=== PATIENT | female | born 1950 | race Two or more races ===

== ENCOUNTER 2024-08-14 11:05 | Inpatient (IN) | payer MEDICARE, OTHER ==
[~2024-08-14] VITALS: Ht 167.6 cm; Wt 77.6 kg
[2024-08-14] MEDS: IV NS 0.9% 1,000 ML BAG IV ONE (11:35)
[2024-08-14 12:16] LABS: BASOPHILS # (AUTO) 0.1 K/uL (0.0-0.2); BASOPHILS % (AUTO) 0.8 % (0.0-2.0); EOSINOPHILS # (AUTO) 0.3 K/uL (0.0-0.7); EOSINOPHILS % (AUTO) 2.9 % (0.0-6.0); HEMATOCRIT 30 % (33-45); HEMOGLOBIN 9.5 g/dL (11.5-14.8); LYMPHOCYTES # (AUTO) 0.8 K/uL (0.8-4.8); LYMPHOCYTES % (AUTO) 7.7 % (20.0-44.0); MEAN CORPUSCULAR HEMOGLOBIN 23 PG (26.0-33.0); MEAN CORPUSCULAR HGB CONC 32 g/dl (31.0-36.0); MEAN CORPUSCULAR VOLUME 73 fL (82-100); MONOCYTES % (AUTO) 9.3 % (2.0-12.0); NEUTROPHILS # (AUTO) 8.3 K/uL (1.8-8.9); NEUTROPHILS % (AUTO) 79.3 % (43.0-81.0); PLATELET COUNT (AUTO) 530 K/uL (150-450); RED BLOOD CELL COUNT(AUTO) 4.13 MIL/uL (4.0-5.2); RED CELL DISTRIBUTION WIDTH 18.7 % (11.5-15.0); WHITE BLOOD COUNT (AUTO) 10.4 K/uL (4.3-11.0)
[2024-08-14 12:39] LABS: ALANINE AMINOTRANSFERASE 19 U/L (12-78); ALBUMIN 2.5 g/dL (3.4-5.0); ALKALINE PHOSPHATASE 149 U/L (46-116); ASPARTATE AMINOTRANSFERASE 20 U/L (15-37); BILIRUBIN,DIRECT 0.1 mg/dL (0.0-0.2); BILIRUBIN,TOTAL 0.3 mg/dL (0.2-1.0); CALCIUM, SERUM 9.1 mg/dL (8.5-10.1); CARBON DIOXIDE 20 mmol/L (21-32); CHLORIDE 105 mmol/L (98-107); GLUCOSE 96 mg/dL (74-106); POTASSIUM 3.9 mmol/L (3.5-5.1); SODIUM SERUM 139 mmol/L (136-145); TOTAL PROTEIN, SERUM 7.3 g/dL (6.4-8.2); UREA NITROGEN, BLOOD 14 mg/dL (7-18)
[2024-08-14] MEDS ORDERED: OMEP40CA21 PO (13:02)
[2024-08-14] MEDS ORDERED: ACET-907 PO (13:02)
[2024-08-14] MEDS ORDERED: EZET10TA15 PO (13:02)
[2024-08-14] MEDS ORDERED: METO50TA16 PO (13:02)
[2024-08-14] MEDS ORDERED: FOLI0.4T6 PO (13:02)
[2024-08-14] MEDS ORDERED: ATOR80TA PO (13:02)
[2024-08-14] MEDS ORDERED: MECL-159 PO (13:02)
[2024-08-14] MEDS ORDERED: LOPE2TAB25 PO (13:02)
[2024-08-14] MEDS ORDERED: DICL100G26 TP (13:02)
[2024-08-14] MEDS ORDERED: DULO60CA64 PO (13:02)
[2024-08-14] MEDS ORDERED: CETI10TA14 PO (13:02)
[2024-08-14] MEDS ORDERED: GUAI100S9 PO (13:02)
[2024-08-14] MEDS ORDERED: SERT25TA5 PO (13:02)
[2024-08-14] MEDS ORDERED: AMIT10TA6 PO (13:02)
[2024-08-14] MEDS ORDERED: [UNRECOGNIZED DRUG - OTHER] PO (13:02)
[2024-08-14] MEDS ORDERED: CHOL100043 PO (13:02)
[2024-08-14] MEDS ORDERED: ACET-868 PO (13:02)
[2024-08-14] MEDS ORDERED: AZIT250T13 PO (13:02)
[2024-08-14] MEDS ORDERED: SUMA50TA PO (13:02)
[2024-08-14] MEDS ORDERED: CYCL30DR EACHEYE (13:02)
[2024-08-14] MEDS ORDERED: CELE200C PO (13:02)
[2024-08-14] MEDS ORDERED: DOCU100C36 PO (13:02)
[2024-08-14 13:15] LABS: APPEARANCE,URINE CLEAR (CLEAR); BILIRUBIN,URINE NEGATIVE (NEGATIVE); BLOOD, URINE TRACE-INTA Ery/uL (NEGATIVE); COLOR,URINE YELLOW (YELLOW); KETONES,URINE 1+ mg/dL (NEGATIVE); LEUKOCYTE ESTERASE ,URINE 1+ (NEGATIVE); NITRITE, URINE POSITIVE (NEGATIVE); PROTEIN,URINE TRACE mg/dl (NEGATIVE); UGLUCOSE NEGATIVE (NEGATIVE); UROBILINOGEN,URINE 0.2 EU/dL (0.2)
[2024-08-14 13:25] LABS: ADD URINE CULTURE YES; BACTERIA,URINE Moderate /HPF (None Seen); SQUAMOUS EPITHELIAL CELL,UR Few /HPF (None Seen)
[2024-08-14] MEDS ORDERED: ASPIRIN 81 MG TAB.CHEW ONE (14:08)
[2024-08-14] MEDS ORDERED: CEFTRIAXONE 1GM BAG (ER ONLY) 50 ML IV ONE (14:09)
[2024-08-14] MEDS: ASPIRIN 81 MG TAB.CHEW PO ONE (14:13)
[2024-08-14] MEDS: CEFTRIAXONE 1 G in IV D5W 50 ML IV ONE (14:14)
[2024-08-14] MEDS ORDERED: ONDANSETRON HCL/PF 4 MG/2 ML VIAL IVP PRN (16:00)
[2024-08-14] MEDS ORDERED: MAGNESIUM HYDROXIDE 30 ML UDC PO PRN (16:00)
[2024-08-14] MEDS ORDERED: Z GUARD REMEDY 4 OZ OINT TP PRN (16:00)
[2024-08-14 17:20] LABS: BASOPHILS % (AUTO) 0.5 % (0.0-2.0); EOSINOPHILS # (AUTO) 0.2 K/uL (0.0-0.7); EOSINOPHILS % (AUTO) 2.1 % (0.0-6.0); HEMATOCRIT 28 % (33-45); HEMOGLOBIN 8.6 g/dL (11.5-14.8); LYMPHOCYTES # (AUTO) 0.8 K/uL (0.8-4.8); LYMPHOCYTES % (AUTO) 8.8 % (20.0-44.0); MEAN CORPUSCULAR HEMOGLOBIN 22 PG (26.0-33.0); MEAN CORPUSCULAR HGB CONC 31 g/dl (31.0-36.0); MEAN CORPUSCULAR VOLUME 73 fL (82-100); MONOCYTES # (AUTO) 1.1 K/uL (0.1-1.30); MONOCYTES % (AUTO) 12.2 % (2.0-12.0); NEUTROPHILS # (AUTO) 7.2 K/uL (1.8-8.9); NEUTROPHILS % (AUTO) 76.4 % (43.0-81.0); PLATELET COUNT (AUTO) 462 K/uL (150-450); RED BLOOD CELL COUNT(AUTO) 3.89 MIL/uL (4.0-5.2); WHITE BLOOD COUNT (AUTO) 9.4 K/uL (4.3-11.0)
[2024-08-14] MEDS: BLOOD SUGAR DIAGNOSTIC 1 EACH STRIP IN SCH ×2 (17:20→17:39)
[2024-08-14] MEDS: ACETAMINOPHEN 325 MG TABLET PO PRN (17:28)
[2024-08-14 17:49] VITALS: BP 114/66; TEMP 97.7; O2SAT 97
[2024-08-14 18:16] LABS: CALCIUM, SERUM 8.8 mg/dL (8.5-10.1); CARBON DIOXIDE 18 mmol/L (21-32); CHLORIDE 109 mmol/L (98-107); GLUCOSE 91 mg/dL (74-106); POTASSIUM 3.7 mmol/L (3.5-5.1); SODIUM SERUM 142 mmol/L (136-145); UREA NITROGEN, BLOOD 12 mg/dL (7-18)
[2024-08-14 18:23] LABS: ALANINE AMINOTRANSFERASE 16 U/L (12-78); ALBUMIN 2.3 g/dL (3.4-5.0); ALKALINE PHOSPHATASE 140 U/L (46-116); ASPARTATE AMINOTRANSFERASE 17 U/L (15-37); BILIRUBIN,TOTAL 0.2 mg/dL (0.2-1.0); TOTAL PROTEIN, SERUM 6.8 g/dL (6.4-8.2)
[2024-08-14 18:32] LABS: CHOLESTEROL 151 mg/dL (<200); HDL CHOLESTEROL 47 mg/dL (40-60); LDL 84 mg/dL (0-99); TRIGLYCERIDES 112 mg/dL (30-150)
[2024-08-14 20:04] LABS: ERYTHROCYTE SEDIMENTATION RATE 95 MM/HR (0-30)
[2024-08-14 20:13] VITALS: BP 130/79; TEMP 98.2; O2SAT 94
[2024-08-14 20:25] LABS: ANISOCYTOSIS 1+; EOSINOPHILS % (MANUAL) 2 % (0-4); LYMPHOCYTES % (MANUAL) 10 % (16-48); MONOCYTES % (MANUAL) 10 % (0-11.0); NEUTROPHILS % (MANUAL) 78 (42-76); PLATELET ESTIMATE INCREASED; ROULEAUX 1+
[2024-08-15 00:01] VITALS: BP 129/66; TEMP 97.7; O2SAT 98
[2024-08-15 04:05] VITALS: BP 136/78; TEMP 98.1; O2SAT 99
[2024-08-15 07:14] LABS: BASOPHILS # (AUTO) 0.1 K/uL (0.0-0.2); BASOPHILS % (AUTO) 0.8 % (0.0-2.0); EOSINOPHILS # (AUTO) 0.3 K/uL (0.0-0.7); EOSINOPHILS % (AUTO) 3.8 % (0.0-6.0); HEMATOCRIT 30 % (33-45); HEMOGLOBIN 9.2 g/dL (11.5-14.8); MEAN CORPUSCULAR HEMOGLOBIN 22 PG (26.0-33.0); MEAN CORPUSCULAR HGB CONC 31 g/dl (31.0-36.0); MEAN CORPUSCULAR VOLUME 73 fL (82-100); MONOCYTES # (AUTO) 1.1 K/uL (0.1-1.30); MONOCYTES % (AUTO) 12.8 % (2.0-12.0); NEUTROPHILS # (AUTO) 6.4 K/uL (1.8-8.9); NEUTROPHILS % (AUTO) 71.6 % (43.0-81.0); PLATELET COUNT (AUTO) 539 K/uL (150-450); RED BLOOD CELL COUNT(AUTO) 4.11 MIL/uL (4.0-5.2); RED CELL DISTRIBUTION WIDTH 19.3 % (11.5-15.0)
[2024-08-15 07:21] LABS: INR 1.07 (0.91-1.10); PARTIAL THROMBOPLASTIN TIME 27.6 SEC (24.3-34.3); PROTHROMBIN TIME 11.3 SECS (9.2-11.1)
[2024-08-15 07:39] LABS: CALCIUM, SERUM 9.5 mg/dL (8.5-10.1); CARBON DIOXIDE 21 mmol/L (21-32); CHLORIDE 109 mmol/L (98-107); CREATININE 0.9 mg/dL (0.6-1.3); GLUCOSE 92 mg/dL (74-106); MAGNESIUM 2.2 mg/dL (1.8-2.4); PHOSPHORUS 3.2 mg/dL (2.5-4.9); POTASSIUM 3.5 mmol/L (3.5-5.1); SODIUM SERUM 143 mmol/L (136-145); UREA NITROGEN, BLOOD 9 mg/dL (7-18)
[2024-08-15 07:44] LABS: CHOLESTEROL 158 mg/dL (<200); HDL CHOLESTEROL 51 mg/dL (40-60); LDL 95 mg/dL (0-99); TRIGLYCERIDES 109 mg/dL (30-150)
[2024-08-15 07:53] LABS: IRON, SERUM 17 ug/dl (50-175); TOTAL IRON BINDING CAPACITY 266 ug/dl (250-450)
[2024-08-15 09:08] VITALS: BP 131/82; TEMP 98.6; O2SAT 96
[2024-08-15] MEDS ORDERED: IOHEXOL-350 100 ML VIAL IV ONE (10:18)
[2024-08-15] MEDS ORDERED: IV NS 0.9% 250 ML IV ONE (10:18)
[2024-08-15] MEDS ORDERED: CT SWABBABLE VALVE TRANS SET 1 EA INFUS.SET MC ONE (10:19)
[2024-08-15 12:24] VITALS: BP 134/90; TEMP 97.4; O2SAT 94
[2024-08-15 13:38] LABS: THYROID STIMULATING HORMONE 1.53 uIU/mL (0.358-3.74)
[2024-08-15] MEDS: EZETIMIBE 10 MG TABLET PO SCH (14:40)
[2024-08-15] MEDS: METOPROLOL TARTRATE 50 MG TABLET PO SCH (14:41)
[2024-08-15] MEDS: MAG HYDROX/AL HYDROX/SIMETH 30 ML UDC PO PRN (15:56)
[2024-08-15 16:37] VITALS: BP 142/76; TEMP 97.4; O2SAT 97
[2024-08-15 20:00] VITALS: BP 117/67; TEMP 97.9; O2SAT 95
[2024-08-15] MEDS: AMITRIPTYLINE HCL 10 MG TABLET PO SCH (21:05)
[2024-08-15] MEDS: ATORVASTATIN 40 MG TABLET PO SCH (21:05)
[2024-08-16] VITALS: BP 132/72; TEMP 98; O2SAT 95
[2024-08-16 04:00] VITALS: BP 131/75; TEMP 98.1; O2SAT 96
[2024-08-16 07:34] LABS: BASOPHILS # (AUTO) 0.1 K/uL (0.0-0.2); BASOPHILS % (AUTO) 0.7 % (0.0-2.0); EOSINOPHILS # (AUTO) 0.5 K/uL (0.0-0.7); EOSINOPHILS % (AUTO) 5.7 % (0.0-6.0); HEMATOCRIT 28 % (33-45); HEMOGLOBIN 8.8 g/dL (11.5-14.8); LYMPHOCYTES # (AUTO) 1.1 K/uL (0.8-4.8); LYMPHOCYTES % (AUTO) 12.1 % (20.0-44.0); MEAN CORPUSCULAR HEMOGLOBIN 22 PG (26.0-33.0); MEAN CORPUSCULAR HGB CONC 31 g/dl (31.0-36.0); MEAN CORPUSCULAR VOLUME 71 fL (82-100); MONOCYTES # (AUTO) 1.1 K/uL (0.1-1.30); NEUTROPHILS # (AUTO) 6.3 K/uL (1.8-8.9); NEUTROPHILS % (AUTO) 69.5 % (43.0-81.0); PLATELET COUNT (AUTO) 496 K/uL (150-450); RED BLOOD CELL COUNT(AUTO) 3.96 MIL/uL (4.0-5.2); RED CELL DISTRIBUTION WIDTH 18.9 % (11.5-15.0); WHITE BLOOD COUNT (AUTO) 9.1 K/uL (4.3-11.0)
[2024-08-16 07:54] LABS: CALCIUM, SERUM 9.1 mg/dL (8.5-10.1); CARBON DIOXIDE 25 mmol/L (21-32); CHLORIDE 110 mmol/L (98-107); CREATININE 0.8 mg/dL (0.6-1.3); GLUCOSE 97 mg/dL (74-106); POTASSIUM 3.7 mmol/L (3.5-5.1); SODIUM SERUM 143 mmol/L (136-145); UREA NITROGEN, BLOOD 7 mg/dL (7-18)
[2024-08-16 08:00] VITALS: BP 115/67; TEMP 98.2; O2SAT 96
[2024-08-16] MEDS ORDERED: ASPI-1169 PO (09:08)
[2024-08-16] MEDS ORDERED: NITR100C6 PO (09:12)
[2024-08-16 12:00] VITALS: BP_SYST 114; BP_SYST 119; BP_DIAS 40; BP_DIAS 68; TEMP 98.1; O2SAT 96
[2024-08-16 16:00] VITALS: BP 126/81; TEMP 98.4; O2SAT 96
[2024-08-16 20:00] VITALS: BP 131/68; TEMP 98.1; O2SAT 94
[2024-08-17] VITALS: BP 133/70; TEMP 98.1; O2SAT 96
[2024-08-17 04:00] VITALS: BP_SYST 133; BP_SYST 143; BP_DIAS 70; BP_DIAS 89; TEMP 97.9; O2SAT 96
[2024-08-17 07:00] VITALS: BP 124/65; TEMP 98.2; O2SAT 96
[2024-08-17 08:37] VITALS: BP 124/65
[2024-08-19 05:10] LABS: FOLIC ACID > 20.0 ng/mL (>3.0)
[2024-08-19 17:06] LABS: METHYLMALONIC ACID 107 nmol/L (0-378)
[2024-08-20 17:10] LABS: VITAMIN B1 THIAMINE,WB 112.2 nmol/L (66.5-200.0)
== END 2024-08-17 13:02 | DRG 64 ==
LOC: ER 11:18 → TELE 14:09
PROVIDERS: ADMIT Internal Medicine; ATTEND Internal Medicine
DX: I63.9 Cerebral infarction, unspecified (principal); E43 Unspecified severe protein-calorie malnutrition; E87.20 Acidosis, unspecified; G93.49 Other encephalopathy; N39.0 Urinary tract infection, site not specified; F03.93 Unspecified dementia, unspecified severity, with mood disturbance; N18.9 Chronic kidney disease, unspecified; I12.9 Hypertensive chronic kidney disease with stage 1 through stage 4 chronic kidney disease, or unspecified chronic kidney disease; F25.9 Schizoaffective disorder, unspecified; D50.9 Iron deficiency anemia, unspecified; D75.839 Thrombocytosis, unspecified; E78.5 Hyperlipidemia, unspecified; E88.09 Other disorders of plasma-protein metabolism, not elsewhere classified; F32.A Depression, unspecified; Q85.00 Neurofibromatosis, unspecified; Z79.82 Long term (current) use of aspirin; F03.90 Unspecified dementia, unspecified severity, without behavioral disturbance, psychotic disturbance, mood disturbance, and anxiety; B96.20 Unspecified Escherichia coli [E. coli] as the cause of diseases classified elsewhere; D64.9 Anemia, unspecified; R29.700 NIHSS score 0; R55 Syncope and collapse; R53.1 Weakness; Z68.27 Body mass index [BMI] 27.0-27.9, adult
CPT/HCPCS: 36415; 70450-TC; 70496-TC; 70498-TC; 71045-TC; 80048-TC; 80053-TC; 80061-TC; 80076-TC; 81001; 82607-TC; 82962-TC; 83540-TC; 83605-TC; 83735-TC; 83921; 84100-TC; 84425; 84443-TC; 84484-TC; 85025-TC; 85652-TC; 85730-TC; 87040-TC; 87086-TC; 92526; 92611-TC; 93307-TC; 97110-TC; 97116-TC; 97530-TC; 97535-TC; G0378; J0696; J7030; J7050; J7060; Q9967

== ENCOUNTER 2024-09-22 12:49 | Inpatient (IN) | payer MEDICARE, OTHER ==
[~2024-09-22] VITALS: Ht 162.6 cm; Wt 88.5 kg
[~2024-09-22 12:49] MED LIST: ACET-868 PO; ACET-907 PO; AMIT10TA6 PO; ASPI-1169 PO; ATOR80TA PO; AZIT250T13 PO; CELE200C PO; CETI10TA14 PO; CHOL100043 PO; CYCL30DR EACHEYE; DICL100G26 TP; DOCU100C36 PO; DULO60CA64 PO; EZET10TA15 PO; FOLI0.4T6 PO; GUAI100S9 PO; LOPE2TAB25 PO; MECL-159 PO; METO50TA16 PO; NITR100C6 PO; OMEP40CA21 PO; SERT25TA5 PO; SUMA50TA PO; [UNRECOGNIZED DRUG - OTHER] PO
[2024-09-22 13:35] LABS: BASOPHILS # (AUTO) 0.1 K/uL (0.0-0.2); BASOPHILS % (AUTO) 0.9 % (0.0-2.0); CARBON DIOXIDE 19 mmol/L (21-32); CHLORIDE 102 mmol/L (98-107); CREATININE 1.1 mg/dL (0.6-1.3); EOSINOPHILS # (AUTO) 0.3 K/uL (0.0-0.7); EOSINOPHILS % (AUTO) 2.7 % (0.0-6.0); GLUCOSE 97 mg/dL (74-106); HEMATOCRIT 23 % (33-45); LYMPHOCYTES # (AUTO) 1.1 K/uL (0.8-4.8); LYMPHOCYTES % (AUTO) 9.2 % (20.0-44.0); MEAN CORPUSCULAR HEMOGLOBIN 21 PG (26.0-33.0); MEAN CORPUSCULAR HGB CONC 30 g/dl (31.0-36.0); MEAN CORPUSCULAR VOLUME 71 fL (82-100); MONOCYTES # (AUTO) 1.4 K/uL (0.1-1.30); MONOCYTES % (AUTO) 11.8 % (2.0-12.0); NEUTROPHILS # (AUTO) 8.7 K/uL (1.8-8.9); NEUTROPHILS % (AUTO) 75.4 % (43.0-81.0); PLATELET COUNT (AUTO) 355 K/uL (150-450); POTASSIUM 4.3 mmol/L (3.5-5.1); RED BLOOD CELL COUNT(AUTO) 3.27 MIL/uL (4.0-5.2); RED CELL DISTRIBUTION WIDTH 19.3 % (11.5-15.0); SODIUM SERUM 133 mmol/L (136-145); UREA NITROGEN, BLOOD 22 mg/dL (7-18); WHITE BLOOD COUNT (AUTO) 11.6 K/uL (4.3-11.0)
[2024-09-22 13:41] LABS: ALANINE AMINOTRANSFERASE 14 U/L (12-78); ALBUMIN 2.4 g/dL (3.4-5.0); ALKALINE PHOSPHATASE 120 U/L (46-116); ASPARTATE AMINOTRANSFERASE 13 U/L (15-37); BILIRUBIN,DIRECT 0.1 mg/dL (0.0-0.2); BILIRUBIN,TOTAL 0.3 mg/dL (0.2-1.0)
[2024-09-22 13:48] LABS: THYROID STIMULATING HORMONE 1.21 uIU/mL (0.358-3.74)
[2024-09-22 14:00] LABS: LYMPHOCYTES % (MANUAL) 10 % (16-48); MONOCYTES % (MANUAL) 7 % (0-11.0)
[2024-09-22 14:01] LABS: ANISOCYTOSIS 1+; EOSINOPHILS % (MANUAL) 2 % (0-4); HYPOCHROMASIA 1+; NEUTROPHILS % (MANUAL) 81 (42-76); OVALOCYTES 1+; PLATELET ESTIMATE ADEQUATE
[2024-09-22] MEDS ORDERED: CRAN300T PO (14:48)
[2024-09-22] MEDS ORDERED: MAGN400O6 PO (14:48)
[2024-09-22] MEDS ORDERED: PANTOPRAZOLE 40 MG VIAL ONE (14:58)
[2024-09-22] MEDS ORDERED: LIDOCAINE VISCOUS 2% UD 15 ML UDC ONE (14:58)
[2024-09-22] MEDS ORDERED: MAG HYDROX/AL HYDROX/SIMETH 30 ML UDC ONE (14:58)
[2024-09-22] MEDS: LIDOCAINE VISCOUS 2% UD 15 ML UDC MM ONE (15:08)
[2024-09-22] MEDS: MAG HYDROX/AL HYDROX/SIMETH 30 ML UDC PO ONE (15:08)
[2024-09-22] MEDS: PANTOPRAZOLE 40 MG VIAL IV ONE (15:08)
[2024-09-22 15:14] LABS: INR 1.06 (0.91-1.10); PARTIAL THROMBOPLASTIN TIME 25.1 SEC (24.3-34.3); PROTHROMBIN TIME 11.2 SECS (9.2-11.1)
[2024-09-22] MEDS ORDERED: MECLIZINE HCL 25 MG TABLET PO PRN (16:00)
[2024-09-22] MEDS ORDERED: MAGNESIUM HYDROXIDE 30 ML UDC PO PRN (16:00)
[2024-09-22] MEDS ORDERED: SUMATRIPTAN SUCCINATE 25 MG TABLET PO PRN (16:00)
[2024-09-22] MEDS ORDERED: ENOXAPARIN SODIUM 40 MG/0.4 ML DISP.SYRIN SQ SCH (16:00)
[2024-09-22] MEDS ORDERED: MAG HYDROX/AL HYDROX/SIMETH 30 ML UDC PO PRN (16:00)
[2024-09-22] MEDS ORDERED: ONDANSETRON HCL/PF 4 MG/2 ML VIAL IVP PRN (16:00)
[2024-09-22] MEDS ORDERED: HYDROCODONE/APAP 5/325MG TABLET PO PRN (16:00)
[2024-09-22] MEDS ORDERED: Z GUARD REMEDY 4 OZ OINT TP PRN (16:00)
[2024-09-22] MEDS ORDERED: ACETAMINOPHEN 325 MG TABLET PO PRN (16:00)
[2024-09-22 16:55] LABS: THYROID STIMULATING HORMONE 1.17 uIU/mL (0.358-3.74)
[2024-09-22] MEDS: METOPROLOL TARTRATE 50 MG TABLET PO SCH (17:39)
[2024-09-22] MEDS: IV NS 0.9% 1,000 ML IV PRN (18:41)
[2024-09-22 20:00] VITALS: BP 95/50; TEMP 97.7; O2SAT 91; O2SAT 95
[2024-09-22 20:05] VITALS: BP 87/52; O2SAT 95
[2024-09-22] MEDS: ATORVASTATIN 40 MG TABLET PO SCH (22:00)
[2024-09-22] MEDS: AMITRIPTYLINE HCL 10 MG TABLET PO SCH (22:00)
[2024-09-22 23:54] VITALS: BP 95/50; TEMP 97.7; O2SAT 95
[2024-09-23] VITALS (10 sets, daily range): BP systolic 92–153; BP diastolic 54–95; TEMP 96.9–98.4; O2SAT 94–98
[2024-09-23 07:16] LABS: BASOPHILS # (AUTO) 0.1 K/uL (0.0-0.2); BASOPHILS % (AUTO) 0.6 % (0.0-2.0); EOSINOPHILS # (AUTO) 0.4 K/uL (0.0-0.7); HEMATOCRIT 21 % (33-45); LYMPHOCYTES # (AUTO) 0.7 K/uL (0.8-4.8); LYMPHOCYTES % (AUTO) 7.9 % (20.0-44.0); MEAN CORPUSCULAR HEMOGLOBIN 22 PG (26.0-33.0); MEAN CORPUSCULAR HGB CONC 31 g/dl (31.0-36.0); MEAN CORPUSCULAR VOLUME 71 fL (82-100); MONOCYTES # (AUTO) 0.8 K/uL (0.1-1.30); MONOCYTES % (AUTO) 9.3 % (2.0-12.0); NEUTROPHILS % (AUTO) 77.2 % (43.0-81.0); PLATELET COUNT (AUTO) 320 K/uL (150-450); RED BLOOD CELL COUNT(AUTO) 2.93 MIL/uL (4.0-5.2); RED CELL DISTRIBUTION WIDTH 19.1 % (11.5-15.0); WHITE BLOOD COUNT (AUTO) 9.1 K/uL (4.3-11.0)
[2024-09-23 07:23] LABS: HEMOGLOBIN 6.5 g/dL (11.5-14.8)
[2024-09-23 07:27] LABS: CALCIUM, SERUM 8.3 mg/dL (8.5-10.1); CARBON DIOXIDE 20 mmol/L (21-32); CHLORIDE 108 mmol/L (98-107); CREATININE 1.1 mg/dL (0.6-1.3); GLUCOSE 86 mg/dL (74-106); MAGNESIUM 2.2 mg/dL (1.8-2.4); PHOSPHORUS 4.1 mg/dL (2.5-4.9); POTASSIUM 3.7 mmol/L (3.5-5.1); SODIUM SERUM 137 mmol/L (136-145); UREA NITROGEN, BLOOD 17 mg/dL (7-18)
[2024-09-23] MEDS: PANTOPRAZOLE 40 MG TABLET.DR PO SCH (07:30)
[2024-09-23 07:56] LABS: ANISOCYTOSIS 1+; BAND % (MANUAL) 1 % (0.0-5.0); EOSINOPHILS % (MANUAL) 4 % (0-4); HYPOCHROMASIA 1+; LYMPHOCYTES % (MANUAL) 7 % (16-48); MONOCYTES % (MANUAL) 7 % (0-11.0); NEUTROPHILS % (MANUAL) 81 (42-76); PLATELET ESTIMATE ADEQUATE
[2024-09-23 07:57] LABS: OVALOCYTES 1+
[2024-09-23] MEDS: SERTRALINE HCL 25 MG TABLET PO SCH (12:52)
[2024-09-23] MEDS: DOCUSATE SODIUM 100 MG CAPSULE PO SCH (12:53)
[2024-09-23] MEDS: FOLIC ACID 1 MG TABLET PO SCH (12:53)
[2024-09-23] MEDS: CHOLECALCIFEROL 1,000 UNIT TABLET (VIT D3) PO SCH (12:53)
[2024-09-23] MEDS: EZETIMIBE 10 MG TABLET PO SCH (12:53)
[2024-09-23] MEDS: DULOXETINE HCL 30 MG CAPSULE.DR PO SCH (12:54)
[2024-09-24] VITALS: BP 122/74; TEMP 98.6; O2SAT 98
[2024-09-24 07:23] LABS: BASOPHILS # (AUTO) 0.1 K/uL (0.0-0.2); BASOPHILS % (AUTO) 0.9 % (0.0-2.0); EOSINOPHILS # (AUTO) 0.6 K/uL (0.0-0.7); EOSINOPHILS % (AUTO) 7.5 % (0.0-6.0); HEMATOCRIT 23 % (33-45); HEMOGLOBIN 7.3 g/dL (11.5-14.8); LYMPHOCYTES # (AUTO) 0.8 K/uL (0.8-4.8); MEAN CORPUSCULAR HEMOGLOBIN 23 PG (26.0-33.0); MEAN CORPUSCULAR HGB CONC 32 g/dl (31.0-36.0); MEAN CORPUSCULAR VOLUME 72 fL (82-100); MONOCYTES # (AUTO) 0.8 K/uL (0.1-1.30); MONOCYTES % (AUTO) 10.6 % (2.0-12.0); NEUTROPHILS # (AUTO) 5.5 K/uL (1.8-8.9); PLATELET COUNT (AUTO) 375 K/uL (150-450); RED BLOOD CELL COUNT(AUTO) 3.18 MIL/uL (4.0-5.2); RED CELL DISTRIBUTION WIDTH 19.9 % (11.5-15.0); WHITE BLOOD COUNT (AUTO) 7.8 K/uL (4.3-11.0)
[2024-09-24 07:48] LABS: CALCIUM, SERUM 8.1 mg/dL (8.5-10.1); CARBON DIOXIDE 19 mmol/L (21-32); CHLORIDE 112 mmol/L (98-107); CREATININE 0.9 mg/dL (0.6-1.3); GLUCOSE 83 mg/dL (74-106); MAGNESIUM 2.1 mg/dL (1.8-2.4); PHOSPHORUS 2.9 mg/dL (2.5-4.9); POTASSIUM 3.8 mmol/L (3.5-5.1); SODIUM SERUM 142 mmol/L (136-145); UREA NITROGEN, BLOOD 13 mg/dL (7-18)
[2024-09-24 08:00] VITALS: BP 122/74; TEMP 98.4; O2SAT 96
[2024-09-24 12:19] VITALS: BP 117/70; TEMP 98.1; O2SAT 99
[2024-09-24 16:00] VITALS: BP 116/78; TEMP 98.1; O2SAT 95
[2024-09-24 19:15] VITALS: BP 120/82; TEMP 98.6; O2SAT 96
[2024-09-24 20:00] VITALS: BP 120/82; TEMP 98.6; O2SAT 96
[2024-09-24] MEDS ORDERED: MIDAZOLAM HCL 2 MG/2ML VIAL ONE (20:17)
[2024-09-24] MEDS ORDERED: KETAMINE HCL (500MG/10ML) 50 MG/ML VIAL ONE (20:17)
[2024-09-25] VITALS: BP 111/53; TEMP 98.2; O2SAT 93
[2024-09-25 04:00] VITALS: BP 118/83; TEMP 98.1; O2SAT 95
[2024-09-25 05:08] VITALS: BP 118/83; TEMP 98.1; O2SAT 95
[2024-09-25 07:08] LABS: BASOPHILS # (AUTO) 0.1 K/uL (0.0-0.2); EOSINOPHILS # (AUTO) 0.7 K/uL (0.0-0.7); EOSINOPHILS % (AUTO) 9.2 % (0.0-6.0); HEMATOCRIT 24 % (33-45); HEMOGLOBIN 7.5 g/dL (11.5-14.8); LYMPHOCYTES # (AUTO) 1.1 K/uL (0.8-4.8); LYMPHOCYTES % (AUTO) 13.6 % (20.0-44.0); MEAN CORPUSCULAR HEMOGLOBIN 23 PG (26.0-33.0); MEAN CORPUSCULAR HGB CONC 31 g/dl (31.0-36.0); MEAN CORPUSCULAR VOLUME 72 fL (82-100); MONOCYTES % (AUTO) 13.2 % (2.0-12.0); NEUTROPHILS # (AUTO) 4.9 K/uL (1.8-8.9); PLATELET COUNT (AUTO) 438 K/uL (150-450); RED BLOOD CELL COUNT(AUTO) 3.33 MIL/uL (4.0-5.2); RED CELL DISTRIBUTION WIDTH 20.9 % (11.5-15.0); WHITE BLOOD COUNT (AUTO) 7.8 K/uL (4.3-11.0)
[2024-09-25 07:12] LABS: CALCIUM, SERUM 8.4 mg/dL (8.5-10.1); CARBON DIOXIDE 17 mmol/L (21-32); CHLORIDE 110 mmol/L (98-107); CREATININE 0.8 mg/dL (0.6-1.3); GLUCOSE 94 mg/dL (74-106); MAGNESIUM 2.1 mg/dL (1.8-2.4); PHOSPHORUS 2.7 mg/dL (2.5-4.9); POTASSIUM 4.1 mmol/L (3.5-5.1); SODIUM SERUM 140 mmol/L (136-145); UREA NITROGEN, BLOOD 9 mg/dL (7-18)
[2024-09-25 07:30] VITALS: BP 137/71; TEMP 98.4; O2SAT 96
[2024-09-25] MEDS ORDERED: PANT40TA2 PO (08:52)
[2024-09-25 09:04] VITALS: BP 137/71
[2024-09-25] MEDS: PANTOPRAZOLE 40 MG TABLET.DR PO SCH (09:04)
== END 2024-09-25 12:30 | disposition home health service (06) | DRG 377 ==
LOC: ER 12:49 → TELE 15:05 → MED 09-25 12:01
PROVIDERS: ATTEND Nurse Practitioner Acute Care
PROC: 30233N1 Transfusion of Nonautologous Red Blood Cells into Peripheral Vein, Percutaneous Approach (ICD-10-PCS; principal; 2024-09-23)
PROC: 0DB68ZX Excision of Stomach, Via Natural or Artificial Opening Endoscopic, Diagnostic (ICD-10-PCS; 2024-09-24)
DX: K26.4 Chronic or unspecified duodenal ulcer with hemorrhage (principal); E43 Unspecified severe protein-calorie malnutrition; G93.49 Other encephalopathy; I13.0 Hypertensive heart and chronic kidney disease with heart failure and stage 1 through stage 4 chronic kidney disease, or unspecified chronic kidney disease; F03.93 Unspecified dementia, unspecified severity, with mood disturbance; E88.09 Other disorders of plasma-protein metabolism, not elsewhere classified; Q85.00 Neurofibromatosis, unspecified; W19.XXXA Unspecified fall, initial encounter; Z86.73 Personal history of transient ischemic attack (TIA), and cerebral infarction without residual deficits; F03.90 Unspecified dementia, unspecified severity, without behavioral disturbance, psychotic disturbance, mood disturbance, and anxiety; F25.9 Schizoaffective disorder, unspecified; F32.A Depression, unspecified; E78.5 Hyperlipidemia, unspecified; Z79.82 Long term (current) use of aspirin; K29.70 Gastritis, unspecified, without bleeding; K31.84 Gastroparesis; N18.9 Chronic kidney disease, unspecified; K26.9 Duodenal ulcer, unspecified as acute or chronic, without hemorrhage or perforation; Z68.33 Body mass index [BMI] 33.0-33.9, adult; I50.9 Heart failure, unspecified; M17.11 Unilateral primary osteoarthritis, right knee; D50.0 Iron deficiency anemia secondary to blood loss (chronic)
CPT/HCPCS: 36415; 71045-TC; 73564-TC; 80048-TC; 80061-TC; 80076-TC; 82962-TC; 83735-TC; 83880; 84100-TC; 84443-TC; 84484-TC; 85025-TC; 85730-TC; 86850-TC; 92526; 92611-TC; 97116-TC; 97530-TC; A4223; G0378; J2250; J2470; J2704; J3490; J7030; J7040; P9016

== ENCOUNTER 2025-03-04 10:46 | Inpatient (IN) | payer MEDICARE, OTHER ==
[~2025-03-04] VITALS: Ht 167.6 cm; Wt 85.7 kg
[~2025-03-04 10:46] MED LIST changes: -ASPI-1169 PO; -AZIT250T13 PO; -CELE200C PO; -CETI10TA14 PO; +CRAN300T PO; -GUAI100S9 PO; -LOPE2TAB25 PO; +MAGN400O6 PO; -NITR100C6 PO; -OMEP40CA21 PO; +PANT40TA2 PO; -[UNRECOGNIZED DRUG - OTHER] PO
[2025-03-04 11:39] LABS: ALBUMIN 2.5 g/dL (3.4-5.0); BILIRUBIN,DIRECT 0.1 mg/dL (0.0-0.2); BILIRUBIN,TOTAL 0.4 mg/dL (0.2-1.0); CREATININE 0.8 mg/dL (0.6-1.3); POTASSIUM 3.9 mmol/L (3.5-5.1); TOTAL PROTEIN, SERUM 6.4 g/dL (6.4-8.2)
[2025-03-04] MEDS ORDERED: CELE-85 PO (12:25)
[2025-03-04] MEDS ORDERED: BENZ-38 PO (12:25)
[2025-03-04] MEDS ORDERED: SERT100T12 PO (12:25)
[2025-03-04] MEDS ORDERED: PANT40TA49 PO (12:25)
[2025-03-04] MEDS ORDERED: ACET-73 PO (12:25)
[2025-03-04] MEDS ORDERED: ASPI-1169 PO (12:25)
[2025-03-04 12:34] LABS: BASOPHILS # (AUTO) 0.1 K/uL (0.0-0.2); BASOPHILS % (AUTO) 1.6 % (0.0-2.0); EOSINOPHILS # (AUTO) 0.3 K/uL (0.0-0.7); EOSINOPHILS % (AUTO) 2.9 % (0.0-6.0); LYMPHOCYTES # (AUTO) 0.8 K/uL (0.8-4.8); LYMPHOCYTES % (AUTO) 9.4 % (20.0-44.0); MEAN CORPUSCULAR HEMOGLOBIN 20 PG (26.0-33.0); MEAN CORPUSCULAR HGB CONC 32 g/dl (31.0-36.0); MEAN CORPUSCULAR VOLUME 64 fL (82-100); MONOCYTES # (AUTO) 1.1 K/uL (0.1-1.30); MONOCYTES % (AUTO) 12.8 % (2.0-12.0); NEUTROPHILS # (AUTO) 6.3 K/uL (1.8-8.9); NEUTROPHILS % (AUTO) 73.3 % (43.0-81.0); PLATELET COUNT (AUTO) 491 K/uL (150-450); RED BLOOD CELL COUNT(AUTO) 3.12 MIL/uL (4.0-5.2); RED CELL DISTRIBUTION WIDTH 21.5 % (11.5-15.0); WHITE BLOOD COUNT (AUTO) 8.6 K/uL (4.3-11.0)
[2025-03-04 12:38] LABS: HEMOGLOBIN 6.3 g/dL (11.5-14.8)
[2025-03-04 12:39] LABS: HEMATOCRIT 20 % (33-45)
[2025-03-04] MEDS: IV NS 0.9% 1,000 ML BAG IV ONE (13:30)
[2025-03-04] MEDS: PANTOPRAZOLE 40 MG VIAL IV ONE (14:00)
[2025-03-04] MEDS: ONDANSETRON HCL/PF 4 MG/2 ML VIAL IV ONE (14:05)
[2025-03-04] MEDS: MAG HYDROX/AL HYDROX/SIMETH 30 ML UDC PO ONE (14:15)
[2025-03-04] MEDS: LIDOCAINE VISCOUS 2% UD 15 ML UDC MM ONE (14:15)
[2025-03-04] MEDS ORDERED: PANTOPRAZOLE 40 MG VIAL ONE (14:16)
[2025-03-04] MEDS ORDERED: ONDANSETRON HCL/PF 4 MG/2 ML VIAL ONE (14:17)
[2025-03-04] MEDS ORDERED: LIDOCAINE VISCOUS 2% UD 15 ML UDC ONE (14:17)
[2025-03-04] MEDS ORDERED: MAG HYDROX/AL HYDROX/SIMETH 30 ML UDC ONE (14:17)
[2025-03-04 14:44] LABS: LYMPHOCYTES % (MANUAL) 7 % (16-48); MONOCYTES % (MANUAL) 6 % (0-11.0); NEUTROPHILS % (MANUAL) 87 (42-76)
[2025-03-04 14:45] LABS: ANISOCYTOSIS 2+; HYPOCHROMASIA 2+; PLATELET ESTIMATE ADEQUATE
[2025-03-04] MEDS: IV NS 0.9% 1,000 ML IV SCH (17:27)
[2025-03-04] MEDS ORDERED: MAGNESIUM HYDROXIDE 30 ML UDC PO PRN (17:30)
[2025-03-04] MEDS ORDERED: MECLIZINE HCL 25 MG TABLET PO PRN (17:30)
[2025-03-04] MEDS ORDERED: MAG HYDROX/AL HYDROX/SIMETH 30 ML UDC PO PRN (17:30)
[2025-03-04] MEDS ORDERED: HYDROMORPHONE 1 MG/1 ML DISP.SYRIN IV PRN (17:30)
[2025-03-04] MEDS ORDERED: ONDANSETRON HCL/PF 4 MG/2 ML VIAL IVP PRN (17:30)
[2025-03-04] MEDS ORDERED: Z GUARD REMEDY 4 OZ OINT TP PRN (17:30)
[2025-03-04 18:54] LABS: HEMOGLOBIN 7.3 g/dL (11.5-14.8)
[2025-03-04 20:00] VITALS: BP 118/105; TEMP 97.7; O2SAT 95
[2025-03-04] MEDS: AMITRIPTYLINE HCL 10 MG TABLET PO SCH (21:25)
[2025-03-04] MEDS: PANTOPRAZOLE 40 MG VIAL IV SCH (21:25)
[2025-03-04] MEDS: ATORVASTATIN 40 MG TABLET PO SCH (21:25)
[2025-03-05] VITALS (8 sets, daily range): BP systolic 90–130; BP diastolic 61–87; TEMP 97.9–98.2; O2SAT 94–96
[2025-03-05 06:51] LABS: BASOPHILS # (AUTO) 0.1 K/uL (0.0-0.2); BASOPHILS % (AUTO) 1.3 % (0.0-2.0); EOSINOPHILS # (AUTO) 0.3 K/uL (0.0-0.7); EOSINOPHILS % (AUTO) 4.6 % (0.0-6.0); LYMPHOCYTES # (AUTO) 0.6 K/uL (0.8-4.8); LYMPHOCYTES % (AUTO) 9.3 % (20.0-44.0); MEAN CORPUSCULAR HEMOGLOBIN 20 PG (26.0-33.0); MEAN CORPUSCULAR HGB CONC 30 g/dl (31.0-36.0); MEAN CORPUSCULAR VOLUME 67 fL (82-100); MONOCYTES # (AUTO) 0.6 K/uL (0.1-1.30); MONOCYTES % (AUTO) 9.3 % (2.0-12.0); NEUTROPHILS % (AUTO) 75.5 % (43.0-81.0); PLATELET COUNT (AUTO) 410 K/uL (150-450); RED BLOOD CELL COUNT(AUTO) 3.01 MIL/uL (4.0-5.2); WHITE BLOOD COUNT (AUTO) 6.6 K/uL (4.3-11.0)
[2025-03-05 06:57] LABS: APPEARANCE,URINE CLEAR (CLEAR); BILIRUBIN,URINE NEGATIVE (NEGATIVE); BLOOD, URINE 1+ Ery/uL (NEGATIVE); COLOR,URINE YELLOW (YELLOW); KETONES,URINE NEGATIVE (NEGATIVE); LEUKOCYTE ESTERASE ,URINE TRACE (NEGATIVE); NITRITE, URINE NEGATIVE (NEGATIVE); PH,URINE 5.5 (5.0-8.0); PROTEIN,URINE NEGATIVE (NEGATIVE); UGLUCOSE NEGATIVE (NEGATIVE); UROBILINOGEN,URINE 0.2 EU/dL (0.2)
[2025-03-05 07:08] LABS: ADD URINE CULTURE NO; BACTERIA,URINE Rare /HPF (None Seen); SQUAMOUS EPITHELIAL CELL,UR Few /HPF (None Seen)
[2025-03-05 07:58] LABS: HEMATOCRIT 20 % (33-45); HEMOGLOBIN 6.1 g/dL (11.5-14.8)
[2025-03-05 08:24] LABS: CALCIUM, SERUM 8.5 mg/dL (8.5-10.1); CARBON DIOXIDE 18 mmol/L (21-32); CHLORIDE 109 mmol/L (98-107); CREATININE 0.8 mg/dL (0.6-1.3); GLUCOSE 95 mg/dL (74-106); MAGNESIUM 2.3 mg/dL (1.8-2.4); PHOSPHORUS 3.3 mg/dL (2.5-4.9); POTASSIUM 3.8 mmol/L (3.5-5.1); SODIUM SERUM 138 mmol/L (136-145); UREA NITROGEN, BLOOD 9 mg/dL (7-18)
[2025-03-05] MEDS: DOCUSATE SODIUM 100 MG CAPSULE PO SCH (08:50)
[2025-03-05] MEDS: ACETAMINOPHEN 325 MG TABLET PO PRN (08:51)
[2025-03-05] MEDS: ALPRAZOLAM 0.25 MG TABLET PO PRN (08:51)
[2025-03-05] MEDS: EZETIMIBE 10 MG TABLET PO SCH (08:52)
[2025-03-05] MEDS: METOPROLOL TARTRATE 50 MG TABLET PO SCH (08:52)
[2025-03-05 10:07] LABS: ANISOCYTOSIS 1+; EOSINOPHILS % (MANUAL) 3 % (0-4); LYMPHOCYTES % (MANUAL) 8 % (16-48); MONOCYTES % (MANUAL) 6 % (0-11.0); NEUTROPHILS % (MANUAL) 83 (42-76); PLATELET ESTIMATE ADEQUATE
[2025-03-05] MEDS: NEOMY SULF/BACITRAC ZN/POLY 15 GM TUBE TP SCH (12:20)
[2025-03-05] MEDS: IV NS 0.9% 1,000 ML IV PRN (16:16)
[2025-03-05 18:38] LABS: INR 1.01 (0.91-1.10); PROTHROMBIN TIME 10.4 SECS (9.2-11.1)
[2025-03-06 07:00] VITALS: BP 112/60; TEMP 97.7; O2SAT 97
[2025-03-06 07:19] LABS: CALCIUM, SERUM 8.1 mg/dL (8.5-10.1); CREATININE 0.8 mg/dL (0.6-1.3); MAGNESIUM 2.1 mg/dL (1.8-2.4); PHOSPHORUS 3.3 mg/dL (2.5-4.9)
[2025-03-06 08:00] VITALS: BP 112/60; TEMP 97.7; O2SAT 97
[2025-03-06 13:03] LABS: CALCIUM, SERUM 8.4 mg/dL (8.5-10.1); CREATININE 0.9 mg/dL (0.6-1.3); POTASSIUM 3.9 mmol/L (3.5-5.1)
[2025-03-06 13:07] LABS: BILIRUBIN,TOTAL 0.3 mg/dL (0.2-1.0); TOTAL PROTEIN, SERUM 5.4 g/dL (6.4-8.2)
[2025-03-06 13:13] LABS: BASOPHILS # (AUTO) 0.1 K/uL (0.0-0.2); BASOPHILS % (AUTO) 0.7 % (0.0-2.0); EOSINOPHILS # (AUTO) 0.5 K/uL (0.0-0.7); EOSINOPHILS % (AUTO) 6.9 % (0.0-6.0); HEMATOCRIT 24 % (33-45); HEMOGLOBIN 7.6 g/dL (11.5-14.8); LYMPHOCYTES # (AUTO) 0.6 K/uL (0.8-4.8); LYMPHOCYTES % (AUTO) 7.8 % (20.0-44.0); MEAN CORPUSCULAR HEMOGLOBIN 22 PG (26.0-33.0); MEAN CORPUSCULAR HGB CONC 31 g/dl (31.0-36.0); MEAN CORPUSCULAR VOLUME 69 fL (82-100); MONOCYTES # (AUTO) 0.7 K/uL (0.1-1.30); MONOCYTES % (AUTO) 9.2 % (2.0-12.0); NEUTROPHILS # (AUTO) 5.7 K/uL (1.8-8.9); NEUTROPHILS % (AUTO) 75.4 % (43.0-81.0); PLATELET COUNT (AUTO) 486 K/uL (150-450); RED BLOOD CELL COUNT(AUTO) 3.48 MIL/uL (4.0-5.2); WHITE BLOOD COUNT (AUTO) 7.5 K/uL (4.3-11.0)
[2025-03-06 16:00] VITALS: BP 97/71; TEMP 98.6; O2SAT 97
[2025-03-06 18:43] LABS: BAND % (MANUAL) 1 % (0.0-5.0); EOSINOPHILS % (MANUAL) 8 % (0-4); LYMPHOCYTES % (MANUAL) 8 % (16-48); MONOCYTES % (MANUAL) 6 % (0-11.0); NEUTROPHILS % (MANUAL) 77 (42-76)
[2025-03-06] MEDS: SOD FERRIC GLUC 125 MG in IV NS 0.9% 100 ML IV SCH (18:43)
[2025-03-06 18:44] LABS: ANISOCYTOSIS 1+; OVALOCYTES 1+; PLATELET ESTIMATE INCRE
[2025-03-06 20:01] VITALS: BP 151/81; TEMP 97.3; O2SAT 98
[2025-03-07 07:14] LABS: CALCIUM, SERUM 8.6 mg/dL (8.5-10.1); CREATININE 0.8 mg/dL (0.6-1.3); PHOSPHORUS 3.7 mg/dL (2.5-4.9); POTASSIUM 3.9 mmol/L (3.5-5.1)
[2025-03-07 08:00] VITALS: BP 129/66; TEMP 98.2; O2SAT 97
[2025-03-07 08:33] LABS: BASOPHILS # (AUTO) 0.1 K/uL (0.0-0.2); BASOPHILS % (AUTO) 0.9 % (0.0-2.0); EOSINOPHILS # (AUTO) 0.5 K/uL (0.0-0.7); EOSINOPHILS % (AUTO) 8.1 % (0.0-6.0); HEMATOCRIT 24 % (33-45); HEMOGLOBIN 7.3 g/dL (11.5-14.8); LYMPHOCYTES # (AUTO) 0.8 K/uL (0.8-4.8); MEAN CORPUSCULAR HEMOGLOBIN 22 PG (26.0-33.0); MEAN CORPUSCULAR HGB CONC 31 g/dl (31.0-36.0); MEAN CORPUSCULAR VOLUME 70 fL (82-100); MONOCYTES # (AUTO) 0.7 K/uL (0.1-1.30); MONOCYTES % (AUTO) 11.7 % (2.0-12.0); NEUTROPHILS # (AUTO) 3.8 K/uL (1.8-8.9); NEUTROPHILS % (AUTO) 65.3 % (43.0-81.0); PLATELET COUNT (AUTO) 503 K/uL (150-450); RED BLOOD CELL COUNT(AUTO) 3.41 MIL/uL (4.0-5.2); RED CELL DISTRIBUTION WIDTH 25.8 % (11.5-15.0); WHITE BLOOD COUNT (AUTO) 5.8 K/uL (4.3-11.0)
[2025-03-07] MEDS: PANTOPRAZOLE 40 MG TABLET.DR PO SCH (09:40)
[2025-03-07 11:42] LABS: EOSINOPHILS % (MANUAL) 11 % (0-4); LYMPHOCYTES % (MANUAL) 15 % (16-48); MONOCYTES % (MANUAL) 13 % (0-11.0); NEUTROPHILS % (MANUAL) 61 (42-76); PLATELET ESTIMATE INCREASED
[2025-03-07 11:43] LABS: ANISOCYTOSIS 1+; HYPOCHROMASIA 1+
[2025-03-07] MEDS: POLYETHYLENE GLYCOL 3350 17 GM POWD.PACK PO PRN (12:02)
[2025-03-07 16:00] VITALS: BP 140/90; TEMP 98.4; O2SAT 8; O2SAT 98
[2025-03-07 20:00] VITALS: BP 129/69; TEMP 98.1; O2SAT 95
[2025-03-08 07:00] VITALS: BP 123/79; TEMP 97.9; O2SAT 95
[2025-03-08] MEDS: SENNOSIDES 8.6 MG TABLET PO SCH (10:57)
[2025-03-08] MEDS: DOCUSATE SODIUM 100 MG CAPSULE PO SCH (10:57)
[2025-03-08 16:00] VITALS: BP 129/86; TEMP 97.3; O2SAT 95
[2025-03-08] MEDS: LACTULOSE 10 G/15 ML UDC (PYXIS) PO SCH (16:26)
[2025-03-08 20:00] VITALS: BP 131/83; TEMP 98.2; O2SAT 94
[2025-03-09 07:28] LABS: OCCULT BLOOD STOOL POSITIVE (NEGATIVE)
[2025-03-09 07:55] LABS: BASOPHILS # (AUTO) 0.1 K/uL (0.0-0.2); EOSINOPHILS # (AUTO) 0.5 K/uL (0.0-0.7); EOSINOPHILS % (AUTO) 7.4 % (0.0-6.0); HEMATOCRIT 27 % (33-45); HEMOGLOBIN 8.3 g/dL (11.5-14.8); LYMPHOCYTES # (AUTO) 0.8 K/uL (0.8-4.8); LYMPHOCYTES % (AUTO) 12.4 % (20.0-44.0); MEAN CORPUSCULAR HEMOGLOBIN 21 PG (26.0-33.0); MEAN CORPUSCULAR HGB CONC 31 g/dl (31.0-36.0); MEAN CORPUSCULAR VOLUME 70 fL (82-100); MONOCYTES # (AUTO) 0.8 K/uL (0.1-1.30); MONOCYTES % (AUTO) 13.1 % (2.0-12.0); NEUTROPHILS # (AUTO) 4.2 K/uL (1.8-8.9); NEUTROPHILS % (AUTO) 66.1 % (43.0-81.0); PLATELET COUNT (AUTO) 546 K/uL (150-450); RED BLOOD CELL COUNT(AUTO) 3.89 MIL/uL (4.0-5.2); RED CELL DISTRIBUTION WIDTH 27.1 % (11.5-15.0); WHITE BLOOD COUNT (AUTO) 6.3 K/uL (4.3-11.0)
[2025-03-09 07:58] LABS: CALCIUM, SERUM 9.2 mg/dL (8.5-10.1); CREATININE 0.8 mg/dL (0.6-1.3); MAGNESIUM 1.9 mg/dL (1.8-2.4); POTASSIUM 3.9 mmol/L (3.5-5.1)
[2025-03-09 08:37] VITALS: BP 109/91; TEMP 97.5; O2SAT 97
[2025-03-09 09:42] VITALS: BP 109/91; TEMP 97.9; O2SAT 99
[2025-03-09] MEDS ORDERED: FERR220S2 PO (11:06)
[2025-03-09] MEDS ORDERED: SENN8.6T19 PO (11:06)
[2025-03-09] MEDS ORDERED: DOCU100T2 PO (11:06)
== END 2025-03-09 14:34 | DRG 446 ==
LOC: ER 10:50 → TELE 16:15 → MED 22:21
PROVIDERS: ADMIT Nurse Practitioner Acute Care; ATTEND Nurse Practitioner Acute Care
PROC: 30233N1 Transfusion of Nonautologous Red Blood Cells into Peripheral Vein, Percutaneous Approach (ICD-10-PCS; principal; 2025-03-05)
DX: K80.70 Calculus of gallbladder and bile duct without cholecystitis without obstruction (principal); K29.80 Duodenitis without bleeding; K26.9 Duodenal ulcer, unspecified as acute or chronic, without hemorrhage or perforation; F41.9 Anxiety disorder, unspecified; D50.9 Iron deficiency anemia, unspecified; D75.839 Thrombocytosis, unspecified; E78.5 Hyperlipidemia, unspecified; G62.9 Polyneuropathy, unspecified; N18.9 Chronic kidney disease, unspecified; Z79.82 Long term (current) use of aspirin; G96.191 Perineural cyst; E86.0 Dehydration; K57.30 Diverticulosis of large intestine without perforation or abscess without bleeding; Q85.00 Neurofibromatosis, unspecified; I12.9 Hypertensive chronic kidney disease with stage 1 through stage 4 chronic kidney disease, or unspecified chronic kidney disease; F32.A Depression, unspecified
CPT/HCPCS: 36415; 71045-TC; 74181-TC; 80048-TC; 80053-TC; 80076-TC; 81001; 82272-TC; 83690-TC; 83735-TC; 84100-TC; 85025-TC; 85027-TC; 85610-TC; 86850-TC; 87081-TC; A4223; G0378; J2405; J2470; J2916; J7030; J7050; P9016